=== PATIENT | female | born 1950 | race Caucasian/White ===

== ENCOUNTER → 2020-05-31 | Outpatient (REF) | payer OTHER ==
[~2020-05-31] MED LIST: ALBU17IN INH; ASPI-1 PO; DOXY-350 PO; FURO80TA2 PO; HYDR-3713 PO; IPRA0.00 INH; KLOR10TA76 PO; NICO14PA TD; PRED10TA2 FT; PRED10TA2 PO; SYNT100T PO
== END ==
LOC: M LAB REF 16:53
PROVIDERS: ATTEND Nurse Practitioner Adult Health
DX: J44.9 Chronic obstructive pulmonary disease, unspecified (principal)

== ENCOUNTER → 2020-10-12 | Outpatient (CLI) | payer MEDICARE, MEDICAID ==
--- NOTE | 2020-10-12 08:04 | PFTRPT ---
Height: 70.00 Inches Weight: 200.00 Lbs BSA: 2.09 Diagnosis: J44.9 DATE: 10/12/2020 ORDERING PHYSICIAN: Beverly Adams NP Pre and post bronchodilator studies have excellent technical quality. Forced vital capacity is reduced. FEV1 is out of proportion. Obstructive index is therefore reduced. Expiratory limit of the flow-volume loop is consistent with significant flow rate limitation. Borderline bronchodilator response is identified. Total lung capacity is elevated. Residual volume suggests significant air trapping. Diffusing capacity is severely reduced but does correct for alveolar volume. Hemoglobin is acceptable at 14.2. Airway resistance elevated with a concomitant decrease in airway conductance. IMPRESSION: At least moderate obstructive ventilatory impairment with underlying air trapping. Diffusing capacity impairment appropriate for alveolar volume. Only borderline bronchodilator response. Please correlate clinically. MTDD
--- NOTE | 2020-10-12 08:48 | REP ---
INDICATION: ABN FINDING OF LUNG FIELD PT HAS PFT 1ST COMPARISON: 04/30/2020 TECHNIQUE: Axial noncontrast images from the thoracic inlet to the upper abdomen with coronal and sagittal reformations. This CT examination was performed using the following dose reduction techniques: Automated exposure control, adjustment of mA and/or kv according to the patient's size, and use of iterative reconstruction technique. FINDINGS: Bibasilar (left greater than right) atelectasis has improved and minimal scattered linear fibroatelectatic changes are noted to the bilateral lung zones. Few scattered noncalcified nodules along with small scattered bullae are again identified and appear relatively stable compared through 05/02/2018 likely representing sequelae of prior granulomatous disease. No acute consolidation or new mass lesion identified. No pleural effusion. No pneumothorax. No significant bronchiectasis. Further evaluation of the mediastinum again demonstrates atherosclerotic changes to the thoracic aorta and coronary arteries along with stable aneurysmal dilatation to the ascending aorta measuring 4.4 cm maximal diameter without dissection. No cardiomegaly or pericardial effusion. No obvious adenopathy. Surrounding musculoskeletal structures demonstrate age-related changes without acute abnormality. IMPRESSION: Recently noted left lower lobe consolidation/atelectasis has improved. Mild fibroatelectatic changes to the bilateral lung zones are again noted along with stable nodules and small bullae similar in appearance through 2018 suggesting chronic granulomatous changes. <Electronically signed by Moody Adams > 10/12/20 [id number]
== END ==
LOC: M RAD 07:11
PROVIDERS: ATTEND Nurse Practitioner Adult Health
DX: R91.8 Other nonspecific abnormal finding of lung field (principal)